=== PATIENT | male | born 1995 | race American Indian/Alaskan Native ===

== ENCOUNTER 2019-04-24 13:31 | Emergency (ER) | payer SELFPAY ==
[2019-04-24] MEDS ORDERED: ZOFRAN IV ONE (14:06)
[2019-04-24] MEDS ORDERED: SUBLIMAZE IV ONE (14:06)
[2019-04-24] MEDS ORDERED: NACL 0.9% 1000 ML 1,000 ML IV ONE (14:06)
[2019-04-24] MEDS ORDERED: ZOFRAN ONE (14:08)
[2019-04-24] MEDS ORDERED: SUBLIMAZE ONE (14:09)
--- NOTE | 2019-04-24 14:12 | Emergency Department Report ---
ED Upper Extremity Inj HPI - General Chief Complaint: Extremity Injury, Upper Stated Complaint: L SHOULDER DISLOCATED Time Seen by Provider: 04/24/19 14:06 Source: patient Mode of arrival: Wheelchair Limitations: No Limitations - History of Present Illness Initial Comments: Patient is 23 years old male came to the emergency room after he caught in a fig ht. Patient presented to the ER was possible left shoulder dislocation. Patient denied any other injuries. MD Complaint: Injury to:: left, shoulder Other Extremity Injury: Shoulder: Left Other Injuries: none Context: fall Associated Symptoms: denies other symptoms - Related Data Previous Rx's Medication Instructions Recorded Last Taken Type Naproxen [Naprosyn] 500 mg PO BID #14 tablet 04/24/19 Unknown Rx Allergies Allergy/AdvReac Type Severity Reaction Status Date / Time No Known Allergies Allergy Unverified 04/24/19 13:52 ED Review of Systems ROS: Stated complaint: L SHOULDER DISLOCATED Other details as noted in HPI Comment: All other systems reviewed and negative Constitutional: denies: chills, fever Respiratory: denies: cough, shortness of breath Cardiovascular: denies: chest pain, palpitations Gastrointestinal: denies: abdominal pain, nausea, vomiting Neurological: denies: headache, weakness ED Past Medical Hx - Past Medical History Previous Medical History?: No - Surgical History Past Surgical History?: No - Social History Smoking Status: Never Smoker Substance Use Type: None - Medications Home Medications: Home Medications Medication Instructions Recorded Confirmed Last Taken Type Naproxen [Naprosyn] 500 mg PO BID #14 tablet 04/24/19 Unknown Rx ED Physical Exam - General Limitations: No Limitations General appearance: alert, in no apparent distress - Head Head exam: Present: atraumatic, normocephalic, normal inspection - Eye Eye exam: Present: normal appearance - ENT ENT exam: Present: normal exam, normal orophraynx, mucous membranes moist - Neck Neck exam: Present: normal inspection, full ROM. Absent: tenderness, meningismus - Respiratory Respiratory exam: Present: normal lung sounds bilaterally - Cardiovascular Cardiovascular Exam: Present: regular rate, normal rhythm, normal heart sounds - GI/Abdominal GI/Abdominal exam: Present: soft, normal bowel sounds. Absent: distended, tenderness, guarding, rebound, rigid, organomegaly, mass, bruit, pulsatile mass, hernia - Expanded Upper Extremity Exam Left Shoulder Exam: Present: full ROM, tenderness, dislocation. Absent: swelling, abrasion, laceration, ecchymosis, deformity Upper Arm exam: Present: normal inspection Elbow exam: Present: normal inspection Forearm Wrist exam: Present: normal inspection Neuro motor exam: Present: wrist extension intact, thumb opposition intact, thumb IP flexion intact, thumb adduction intact, fingers 2-5 abduction intact Neurosensory exam: Present: 2-point discrimination, radial nerve intact, ulnar nerve intact, median nerve intact Vascular: Present: normal capillary refill - Back Exam Back exam: Present: normal inspection, full ROM. Absent: CVA tenderness (R), CVA tenderness (L), muscle spasm, paraspinal tenderness, vertebral tenderness - Neurological Exam Neurological exam: Present: alert, oriented X3, CN II-XII intact, normal gait, reflexes normal - Psychiatric Psychiatric exam: Present: normal mood - Skin Skin exam: Present: warm, intact, normal color ED Course Vital Signs 04/24/19 04/24/19 04/24/19 13:56 14:47 14:53 Temperature 98.7 F Pulse Rate 112 H Pulse Rate [ 90 Intra-Procedure ] Pulse Rate [ Post-Procedure] Pulse Rate [Pre 93 H -Procedure] Respiratory 20 Rate Respiratory 15 Rate [Intra- Procedure] Respiratory Rate [Post- Procedure] Respiratory 13 Rate [Pre- Procedure] Blood Pressure 142/70 Blood Pressure 126/85 [Intra- Procedure] Blood Pressure [Post-Procedure ] Blood Pressure 133/81 [Pre-Procedure] O2 Sat by Pulse 100 Oximetry O2 Sat by Pulse 99 Oximetry [ Intra-Procedure ] O2 Sat by Pulse Oximetry [Post -Procedure] O2 Sat by Pulse 98 Oximetry [Pre- Procedure] 04/24/19 04/24/19 04/24/19 15:00 15:15 15:30 Temperature Pulse Rate 70 Pulse Rate [ Intra-Procedure ] Pulse Rate [ 73 78 72 Post-Procedure] Pulse Rate [Pre -Procedure] Respiratory 16 Rate Respiratory Rate [Intra- Procedure] Respiratory 13 16 17 Rate [Post- Procedure] Respiratory Rate [Pre- Procedure] Blood Pressure Blood Pressure [Intra- Procedure] Blood Pressure 125/92 114/78 110/78 [Post-Procedure ] Blood Pressure [Pre-Procedure] O2 Sat by Pulse Oximetry O2 Sat by Pulse Oximetry [ Intra-Procedure ] O2 Sat by Pulse 98 99 98 Oximetry [Post -Procedure] O2 Sat by Pulse Oximetry [Pre- Procedure] 04/24/19 15:31 Temperature Pulse Rate Pulse Rate [ Intra-Procedure ] Pulse Rate [ Post-Procedure] Pulse Rate [Pre -Procedure] Respiratory Rate Respiratory Rate [Intra- Procedure] Respiratory Rate [Post- Procedure] Respiratory Rate [Pre- Procedure] Blood Pressure Blood Pressure [Intra- Procedure] Blood Pressure [Post-Procedure ] Blood Pressure [Pre-Procedure] O2 Sat by Pulse 99 Oximetry O2 Sat by Pulse Oximetry [ Intra-Procedure ] O2 Sat by Pulse Oximetry [Post -Procedure] O2 Sat by Pulse Oximetry [Pre- Procedure] - Moderate Sedation Indications: fracture/dislocation redu ASA Class: II Mallampati Airway Score: 2 Preparation: ladies underwear operator applied, pulse oximeter, capnometry used, supplemental O2 applied, reversal agents at bedside, suction/airway equipment at bedside, IV secured Fentanyl: IV Fentanyl Dose: 50 Midazolam: IV Midazolam Dose: 5 IV Etomidate Dose (mgs): 5 Complications: none Interventions: oxygen applied Patient Tolerated Procedure: well, no complications - Orthopedic Joint Reduction Joint #1 Consent Obtained: written consent Time Out Performed: Yes Side: left Joint Reduction Location: shoulder Analgesia: moderate sedation Shoulder Technique Used (if applicable): traction/counter-traction Technique Used: traction/counter-traction Post-Reduction Neuro Exam: intact Post-Reduction Vascular Exam: intact Post Reduction X-Ray Obtained: Yes Post Reduction X-Ray Results: reduced Patient Tolerated Procedure: well, no complications Critical care attestation.: If time is entered above; I have spent that time in minutes in the direct care of this critically ill patient, excluding procedure time. ED Disposition Clinical Impression: Dislocation of left shoulder joint Disposition: DC- TO HOME OR SELFCARE Is pt being admited?: No Condition: Stable Instructions: Shoulder Dislocation (ED), Moderate Sedation (ED) Prescriptions: Naproxen [Naprosyn] 500 mg PO BID #14 tablet Referrals: BIPIN NEFF MD [Staff Physician] - 3-5 Days
--- NOTE | 2019-04-24 14:53 | XRay Report ---
Single frontal view of the left shoulder INDICATION: possible dislocation.. Patient identified today and has generalized left shoulder pain COMPARISON: None. IMPRESSION: Anterior inferior humeral head dislocation. No displaced fracture identified. Visualize d left lung is clear. Signer Name: David Stacy MD Signed: 04/24/2019 2:48 PM Workstation Name: [id number]
[2019-04-24] MEDS ORDERED: AMIDATE IV ONE ×2 (14:54→14:56)
[2019-04-24] MEDS ORDERED: VERSED IV NR (15:00)
--- NOTE | 2019-04-24 15:44 | XRay Report ---
Left shoulder-3 views INDICATION: shoulder dislocation. Follow-up after dislocation COMPARISON: None. IMPRESSION: Interval relocation with small Hill-Sachs fracture along the superolateral humeral head. No gross glenoid fracture. Signer Name: David Stacy MD Signed: 04/24/2019 3:39 PM Workstation Name: [id number]
[2019-04-24 17:01] VITALS: BP 115/83
== END 2019-04-24 17:18 | disposition home or self-care (01) ==
LOC: ED 13:31
DX: S43.005A Unspecified dislocation of left shoulder joint, initial encounter (principal); Z79.899 Other long term (current) drug therapy; Y04.0XXA Assault by unarmed brawl or fight, initial encounter; Y93.89 Activity, other specified; Y92.89 Other specified places as the place of occurrence of the external cause; Y99.8 Other external cause status
CPT/HCPCS: 23650; 73020; 73030; 94760; 96374; 99284; J2250; J2405; J3010; J7030